=== PATIENT | female | born 1980 | race Caucasian/White ===

== ENCOUNTER 2018-03-21 10:01 | Outpatient (CLI) | payer BC ==
[2018-03-21 10:58] LABS: Hemoglobin 11.6 g/dL (12.0-16.0); Mean Corpuscular HGB CONC 32.2 g/dL (32.0-36.0); Mean Corpuscular Hemoglobin 25.8 pg (27.0-31.0); Mean Platelet Volume 7.8 fL (7.4-10.4); Platelet Count 281 thou/uL (130-400); RBC Distribution Width 14.9 % (11.5-14.5); White Blood Cell (WBC) Count 6.8 thou/uL (4.8-10.8)
[2018-03-21 11:03] LABS: BHCG - Serum Negative (NEGATIVE); Pregs Control Background? CLEAR/WHITE (CLR/WHITE); Pregs Control Bar Appear? YES (CONTROL BAR)
[2018-03-21 11:20] LABS: ALT (SGPT) 22 U/L (8-55); AST (SGOT) 18 U/L (5-34); Albumin 4.7 g/dL (3.5-5.0); Alkaline Phosphatase 66 U/L (40-150); Anion Gap 13 mmol/L (10-20); BUN (Urea Nitrogen) 9 mg/dL (7.0-18.7); Bilirubin, Total 1.3 mg/dL (0.2-1.2); Calc. Creatinine Clearance 0 mL/min (70-130); Calcium 9.8 mg/dL (7.8-10.44); Carbon Dioxide 25 mmol/L (22-29); Chloride 103 mmol/L (98-107); Estimated GFR-MDRD 75; Globulin 3.5 g/dL (2.4-3.5); Glucose 98 mg/dL (70-105); Potassium 4.2 mmol/L (3.5-5.1); Protein, Total 8.2 g/dL (6.0-8.3); Sodium 137 mmol/L (136-145)
== END 2018-03-21 10:02 | disposition home or self-care (01) ==
LOC: LABBT 10:01
PROVIDERS: ATTEND Obstetrics & Gynecology
DX: Z01.812 Encounter for preprocedural laboratory examination (principal); N39.3 Stress incontinence (female) (male); N93.9 Abnormal uterine and vaginal bleeding, unspecified
CPT/HCPCS: 80053; 84703; 85027; 86850; 86900; 86901

== ENCOUNTER 2018-03-21 10:15 | Inpatient (IN) | payer BC ==
[2018-03-21 10:36] VITALS: BMI 29.8
[2018-03-24] MEDS ORDERED: Famotidine/PF 20 mg/2ml Vial ONE (08:46)
[2018-03-24] MEDS ORDERED: Gabapentin 300 MG CAP ONE (08:46)
[2018-03-24] MEDS ORDERED: CEFAZOLIN/Water 2 GM/20 ML SYRINGE ONE (08:47)
[2018-03-24] MEDS ORDERED: Lidocaine 1% w/Epinephrine 1:100K 30 ML VIAL ONE (10:42)
[2018-03-24] MEDS ORDERED: Bupivacaine HCl 0.5%/Epinephrine 1:200,000/PF 30 ml Vial ONE (10:42)
[2018-03-24] MEDS ORDERED: Midazolam HCl 2 mg/2 ml Vial ONE ×2 (10:48→10:52)
[2018-03-24] MEDS ORDERED: Fentanyl 100 MCG/2 ML VIAL ONE (10:52)
[2018-03-24] MEDS ORDERED: HYDROmorphone 0.5 MG/0.5 ML SYRINGE ONE (10:52)
[2018-03-24] MEDS ORDERED: Promethazine HCl 25 MG/ML VIAL ONE (10:52)
[2018-03-24] MEDS ORDERED: Ondansetron HCl/PF 4 MG/2 ML Vial ONE (13:27)
[2018-03-24] MEDS ORDERED: Ketorolac Tromethamine 30 MG/ML VIAL ONE (13:27)
[2018-03-24] MEDS ORDERED: PROPOFOL 200 MG/20 ML VIAL ONE (13:27)
[2018-03-24] MEDS ORDERED: Lidocaine 1% PF 5 ML VIAL ONE (13:27)
[2018-03-24] MEDS ORDERED: Dexamethasone 20 MG/5 ML VIAL ONE (13:27)
[2018-03-24] MEDS ORDERED: Metoclopramide HCl 10 MG/2 ML VIAL ONE (13:27)
[2018-03-24] MEDS ORDERED: Glycopyrrolate 0.2 MG/ML 5 ML SYRINGE ONE (13:27)
[2018-03-24] MEDS ORDERED: diphenhydrAMINE 25 MG CAP PO PRN (14:28)
[2018-03-24] MEDS ORDERED: Acetaminophen 325 MG TAB PO PRN (14:28)
[2018-03-24] MEDS ORDERED: Promethazine HCl 25 MG/ML VIAL IM PRN (14:28)
[2018-03-24] MEDS ORDERED: Ondansetron HCl/PF 4 MG/2 ML Vial IVP PRN (14:28)
[2018-03-24] MEDS ORDERED: Simethicone Chewable 80 MG TAB PO PRN (14:28)
[2018-03-24] MEDS ORDERED: Bisacodyl 10 MG SUPP PR PRN (14:28)
[2018-03-24] MEDS ORDERED: Morphine 4 MG/ML VIAL ONE (15:22)
[2018-03-24] MEDS: Lactated Ringer's 1,000 ML IV SCH ×2 (16:34→20:37)
[2018-03-24] MEDS: HYDROcodone/Acetaminophen 10/325 mg Tablet PO PRN ×2 (16:43→20:29)
[2018-03-24] MEDS: Ibuprofen 800 MG TAB PO SCH (22:04)
[2018-03-25] MEDS: HYDROcodone/Acetaminophen 10/325 mg Tablet PO PRN ×3 (00:47→09:16)
[2018-03-25] MEDS: Ibuprofen 800 MG TAB PO SCH ×2 (05:09→13:00)
[2018-03-25 05:22] LABS: #Lymphocytes 2.2 thou/uL (1.20-3.40); #Monocytes 1.5 thou/uL (0.11-0.59); #Neutrophils 12.5 thou/uL (1.40-6.50); %Basophils 0.2 % (0.0-1.0); %Eosinophils 0.1 % (0.0-10.0); %Lymphocytes 13.5 % (21.0-51.0); %Neutrophils 77.2 % (42.0-75.0); Mean Corpuscular HGB CONC 31.5 g/dL (32.0-36.0); Mean Corpuscular Hemoglobin 25.8 pg (27.0-31.0); Mean Corpuscular Volume 81.8 fl (81.0-99.0); Mean Platelet Volume 7.8 fL (7.4-10.4); Platelet Count 245 thou/uL (130-400); RBC Distribution Width 14.7 % (11.5-14.5); Red Blood Cell (RBC) Count 3.51 mill/uL (4.20-5.40); White Blood Cell (WBC) Count 16.2 thou/uL (4.8-10.8)
[2018-03-25 05:29] LABS: Anion Gap 6 mmol/L (10-20); BUN (Urea Nitrogen) 5 mg/dL (7.0-18.7); Calc. Creatinine Clearance 145 mL/min (70-130); Calcium 8.5 mg/dL (7.8-10.44); Carbon Dioxide 28 mmol/L (22-29); Chloride 107 mmol/L (98-107); Estimated GFR-MDRD Greater than 90; Glucose 114 mg/dL (70-105); Potassium 3.9 mmol/L (3.5-5.1); Sodium 137 mmol/L (136-145)
[2018-03-25] MEDS: Lactated Ringer's 1,000 ML IV SCH (07:30)
[2018-03-25 08:46] VITALS: BP 135/78; TEMP 98.1
--- NOTE | 2018-03-25 09:40 | PRG ---
DATE OF SERVICE: 03/25/2018 HISTORY OF PRESENT ILLNESS: This is postoperative day #1, status post a total vaginal hysterectomy with a bilateral salpingectomy and a mid urethral sling using Advantage Fit and cystoscopy. SUBJECTIVE: The patient reports minimal pain and minimal vaginal bleeding. She is tolerating an oral diet and her pain is controlled with oral medications. Her vaginal pack and Nava were recently removed this morning. She has not yet been able to void since removal of her Nava. The patient reports minimal flatus currently. OBJECTIVE: VITAL SIGNS: Blood pressure is 135/78, temperature is 98.1, pulse is 84, respiratory rate is 20, oxygen saturation is 99% on room air. CARDIOVASCULAR: Regular rate. RESPIRATORY: Unlabored breathing. ABDOMEN: Soft, mild distention, positive bowel sounds in all 4 quadrants. EXTREMITIES: Negative Homans' and no edema. LABORATORY DATA: Hemoglobin 9, hematocrit 28.7, platelet count 245, white blood cells 16.2, creatinine is 0.69. ASSESSMENT: 1. This is postoperative day #1, status post a total vaginal hysterectomy with a bilateral salpingectomy and a mid urethral sling using Advantage Fit and cystoscopy. 2. Anemia, expected post op. PLAN: Continue postoperative care with p.r.n. pain meds and ambulation. Perform a voiding trial this morning with a bladder scan prior and after voiding. We will plan to discharge home later today after her voiding trial is complete. ZANE
[2018-03-25] MEDS ORDERED: HYDROcodone/Acetaminophen 5/325 mg Tablet PO SCH (12:00)
--- NOTE | 2018-03-25 12:37 | OP ---
PREOPERATIVE DIAGNOSES: 1. Abnormal uterine bleeding. 2. Stress urinary incontinence. POSTOPERATIVE DIAGNOSES: 1. Abnormal uterine bleeding. 2. Stress urinary incontinence. PROCEDURES: 1. Total vaginal hysterectomy. 2. Bilateral salpingectomy. 3. Transvaginal tape retropubic mid-urethral sling using Advantage Fit. 4. Cystoscopy. SURGEON: Ani Carrera D.O. CONTENT ANALYST: Tiffany Mack M.D. COMPLICATIONS: None. ESTIMATED BLOOD LOSS: 100 mL. URINE OUTPUT: 800 mL. FINDINGS: Normal appearing external genitalia, normal vaginal and cervical epithelium, 8-9 cm uterus with normal appearing bilateral fallopian tubes and ovaries with evidence of prior tubal ligation, normal appearing bladder mucosa with no signs of bladder perforation and bilateral ureteral efflux seen. INDICATIONS FOR THE PROCEDURE: Ms. Janine Schulte is a 38-year-old who presented to clinic with a history of abnormal uterine bleeding. The patient had undergone medical therapy using oral contraceptives and still continued to have heavy menstrual cycle. The patient was counseled on all treatment options, decided on definitive surgical therapy based on the examination she is a candidate for a vaginal hysterectomy and was counseled as such. The patient also complained of daily leaking of urine when she cough and sneeze. On examination, she did have a urethral hypermobility. She was counseled on treatment options and desired to pursue a mid-urethral sling for stress urinary incontinence. PROCEDURE IN DETAIL: The patient was brought to the operating room. She was placed under general anesthesia. The patient was initially placed in high lithotomy position using candy cane stirrups. She was prepped and draped in a sterile fashion. An official timeout was performed. Ancef was given for surgical prophylaxis. A weighted speculum was placed in the posterior aspect of vagina and then anterior aspect of the vagina was retracted using a [place]. The anterior and posterior aspect of the cervix was grasped with Romero clamps. The cervical vaginal junction was sequentially injected using lidocaine with epinephrine in a circumferential fashion to allow for hydrodissection. This juncture was incised using the scalpel in a circumferential fashion. The vaginal epithelium and fibers of the cervical vaginal junctions were dissected using blunt dissection with a moistened Ray-Esther. Attention was turned to the posterior aspect where the posterior peritoneum was identified and incised using Preciado scissors. Incision was extended and a long weighted speculum was placed into the posterior cul-de-sac. The attention was turned to the anterior aspect. Meticulous dissection was performed; however, the anterior peritoneum was not able to be identified immediately. Therefore,the uterosacral ligaments were clamped, transected and suture ligated bilaterally. These were tagged using hemostats. Attention was turned back to the anterior portion again. Again, the dissection was performed; however, the peritoneum was not able to be incised at this point. Additional clamp with a curved Smita transection and suture ligation was performed of the cardinal ligament allowing further descent of the uterus. At this time, the anterior vaginal epithelium was elevated further using an Allis clamp, tented upward and the peritoneum was then able to be identified after further meticulous dissection. Peritoneum was then incised and then this incision was extended and the Baljit retractor was placed within the peritoneal cavity between the uterus and bladder. Several advancements were made cephalad along the uterus where the uterine vessels were then clamped using Smita clamps, transected, and suture ligated creating hemostasis. This was done bilaterally. This was done in a sequential fashion until the uterus was able to be everted. At this time, the posterior aspect of the uterus was grasped using Romero clamps and the uterus was everted. A curved Smita clamp was then placed across the fallopian tube and the uterine ovarian on the right aspect. The tissue was then transected and the same was performed on the left aspect. During this process, the fallopian tube was incorporated into this. Therefore, this was additionally clamped and then removed as a separate specimen. The triple pedicle was then suture ligated using both the free tie on a pass and then a Smita stitch on the right side. The same was done on the left aspect. The suture was also tagged. The pelvis was then irrigated and cleared of all clot and debris. The removal of distal potion of the fallopian tubes was performed bilaterally and pedical suture ligated and hemostatic. There was an area along the right side of the vaginal cuff that required a [id number] stitch for improved hemostasis. The pedicle sites were evaluated and hemostatic. The posterior aspect of the cuff was then run in a running locking fashion incorporating the peritoneum into the cuff. The anterior aspect of the cuff was grasped using Allis clamp and the cuff was then closed with a running vertical fashion using 0 Vicryl and incorporating the uterosacral ligament. At this time, the attention was turned to performing the mid-ureteral sling. The patient was transitioned to [facility] in a low lithotomy position as this was necessary for the sling. The patient was then reprepped and redraped. The Nava catheter was already in place. The vaginal epithelium was grasped 1 cm distal from the urethral meatus with Allis clamps and elevated. This was injected using lidocaine with epinephrine. A superficial incision was made through the vaginal epithelium and Metzenbaum scissors were used to dissect tunnels towards the pubic bone. This was done bilaterally. A guide was placed from the Nava catheter. The sites for the exit where the marked above the pubic bone approximately 2 cm lateral to the midline. A hydrodissection was performed by injecting 30 mL of saline directly behind the pubic bone bilaterally. The transvaginal tape was then inserted on the patient's right aspect and then directly guided behind the pubic bone and exited at the marked spot. The same was performed on the left aspect. The Nava catheter was then removed. Cystoscopy was performed noting a normal appearing bladder mucosa. No evidence of bladder perforation and bilateral ureteral efflux. The cystoscope was removed and the Nava catheter was replaced. The sling was pulled up and appropriately secured, protecting it from being too taut with Mayos and ends of the sling were cut. The vaginal epithelium was closed in a running fashion and the vaginal pack was placed. The patient tolerated the procedure well. There were no complications. All counts were correct x2. Dermabond was placed of exit sites. The patient was extubated and transferred to recovery room. ZANE
--- NOTE | 2018-03-26 10:53 | DIS ---
DATE OF ADMISSION: 03/24/2018 DATE OF DISCHARGE: 03/25/2018 ADMISSION PHYSICIAN: Ani Carrera D.O. DISCHARGE PHYSICIAN: Ani Carrera D.O. ADMISSION DIAGNOSES: 1. Abnormal uterine bleeding. 2. Stress urinary incontinence. DISCHARGE DIAGNOSES: 1. Status post total vaginal hysterectomy with a bilateral salpingectomy and retropubic mid urethral sling using Advantage Fit. 2. Transient urinary retention after sling placement. BRIEF HOSPITAL COURSE: Ms. Janine Schulte is a 38-year-old female who underwent a total vaginal hysterectomy with bilateral salpingectomy and a retropubic mid urethral sling using Advantage Fit for complaints of abnormal uterine bleeding and stress urinary incontinence. The patient's postoperative course was complicated by transient urinary retention with failed voiding trial x2. Otherwise, her postoperative course was uncomplicated. An indwelling Nava catheter was placed for the transient urinary retention. She otherwise is meeting all requirements for discharge. She is tolerating oral intake, passing flatus, ambulating and pain is controlled SUBJECTIVE: Please see progress note from 03/25/2018. FOLLOWUP: The patient will be seen on 03/28/2018 for a repeat voiding trial. MEDICATIONS: 1. [place] 5/325 one tablet q.6 hours p.r.n. pain. 2. Motrin 800 mg 1 tablet q.8 hours p.r.n. pain. 3. Macrobid 100 mg once daily for prophylaxis. 4. Pyridium p.r.n. 5. Oxybutynin 5 mg once a day. DRAINS: Indwelling Nava catheter with a leg bag. ACTIVITY: Reviewed importance of pelvic rest, no heavy lifting, pulling or pushing x6 weeks. MTDD
--- NOTE | 2018-03-26 15:13 | PQF ---
JAY JAYLAURA TRAORE CANDICE [id number] [address] [place] [address] [id number] CLINICAL DOCUMENTATION CLARIFICATION FORM: POST DISCHARGE Please exercise your independent, professional judgment in responding to the clarification form. Clinical indicators are provided on the bottom of this form for your review. Thank you. Please check appropriate box(s): [ ] Acute blood loss anemia [ ] Post-op anemia related to acute blood loss [ ] Anemia: [ ] Aplastic [ ] Nutritional [ ] Drug induced (specify) ___ [ ] Hemolytic [ ] Hereditary [ ] Acquired [ ] Autoimmune [ ] Non-autoimmune [ ] Enzyme disorder [ X ] Chronic Anemia: [ X ] Blood loss [ ] Hemolytic [ ] Simple [ ] Due to Vitamin B12 Deficiency [ ] Other [ ] Anemia of Chronic Disease (please specify) [ ] Anemia due to Neoplasm: [ ] Primary [ ] Secondary [ ] Anemia due to (please choose): [ ] Due to Chemotherapy [ ] Due to Radiotherapy [ ] Due to Immunotherapy [ ] Other diagnosis [ ] Unable to determine In addition, please specify: Present on Admission (POA): [ X ] Yes [ ] No [ ] Unable to determine For continuity of documentation, please document condition throughout progress notes and discharge summary. Thank You. CLINICAL INDICATORS - SIGNS / SYMPTOMS / LABS Anemia documented on the op note 03/24/2018, abnormal uterine bleeding RBC 03/25/18 - 3.51 HGB 03/25/18 - 9.0 HCT 03/25/18 - 28.7 RISK FACTORS History of Abnormal uterine bleeding, s/p total vaginal hysterectomy with bilateral salpingesctomy and retropubic midurethral sling using Advantage Fit - Op Note 03/24/18 TREATMENTS: total vaginal hysterectomy - op note 03/24/18 (This form is maintained as a part of the permanent medical record) 2014 [employer] All Rights Reserved Syl Eaton, CCS, [employer] OPERATOR, CASC [email or web address] ZANE
== END 2018-03-25 14:13 | disposition home or self-care (01) | DRG 743 ==
LOC: SURG A 03-24 08:04 → 3SE 03-24 15:53
PROVIDERS: ADMIT Obstetrics & Gynecology; ATTEND Obstetrics & Gynecology
PROC: 0UT97ZZ Resection of Uterus, Via Natural or Artificial Opening (ICD-10-PCS; principal; 2018-03-24)
PROC: 0UT77ZZ Resection of Bilateral Fallopian Tubes, Via Natural or Artificial Opening (ICD-10-PCS; 2018-03-24)
PROC: 0TSD0ZZ Reposition Urethra, Open Approach (ICD-10-PCS; 2018-03-24)
PROC: 0TJB8ZZ Inspection of Bladder, Via Natural or Artificial Opening Endoscopic (ICD-10-PCS; 2018-03-24)
DX: N93.8 Other specified abnormal uterine and vaginal bleeding (principal); N39.3 Stress incontinence (female) (male); D50.0 Iron deficiency anemia secondary to blood loss (chronic); R33.9 Retention of urine, unspecified; F41.9 Anxiety disorder, unspecified; F32.9 Major depressive disorder, single episode, unspecified; Z88.5 Allergy status to narcotic agent; Z90.49 Acquired absence of other specified parts of digestive tract
CPT/HCPCS: 36415; 80048; 85025; 88307; C1781; J0131; J0670; J1100; J1170; J1885; J2001; J2250; J2270; J2405; J2550; J2704; J2765; J3010; S0028

== ENCOUNTER 2019-11-25 08:08 | Outpatient (CLI) | payer BC ==
--- NOTE | 2019-11-25 09:28 | ULT ---
LIMITED LEFT BREAST ULTRASOUND: Date: 11/25/2019 PROVIDED CLINICAL HISTORY: Left breast mass. FINDINGS: Limited sonographic interrogation was performed of the left breast in the region of palpable and mamm ographic concern. There is a circumscribed hypoechoic bilobed mass at the 5 o'clock position of the l eft breast in this region. This measures at least 2.4 cm in greatest dimension. There is no evidence for shadowing. Other than the macrolobulation, the margins of this mass appear smooth. IMPRESSION: BIRADS Category 4 - Suspicious abnormality. Ultrasound-guided biopsy is recommended. Results and recommendations discussed with the patient, who voiced understanding. POS: OFF
--- NOTE | 2019-11-25 10:14 | MMO ---
Bilateral MAMMO Bilat Diag DDI+DOROTHY. CLINICAL HISTORY: Patient is 39 years old and is seen for diagnostic exam. VIEWS: The views performed were: . FILMS COMPARED: The present examination has been compared to a prior imaging study performed at [facility] on 09/18/2016. This study has been interpreted with the assistance of computer-aided detection. MAMMOGRAM FINDINGS: The breasts are heterogeneously dense, which could obscure a lesion on mammography. There is an equal density, lobular mass measuring 27 millimeters with circumscribed margins seen in the outer region of the left breast. Ultrasound demonstrates a corresponding hypoechoic mass. In the right breast, there are no suspicious masses, calcifications or areas of architectural distortion. IMPRESSION: MASS IN THE LEFT BREAST IS SUSPICIOUS. AN ULTRASOUND-GUIDED BREAST BIOPSY IS RECOMMENDED. RESULTS AND RECOMMENDATIONS DISCUSSED WITH THE PATIENT AND QUESTIONS ANSWERED. THE RESULTS OF THIS EXAM WERE SENT TO THE PATIENT. ACR BI-RADS Category 4 - Suspicious abnormality - biopsy should be considered MAMMOGRAPHY NOTE: 1. A negative mammogram report should not delay a biopsy if a dominant of clinically suspicious mass is present. 2. Approximately 10% to 15% of breast cancers are not detected by mammography. 3. Adenosis and dense breasts may obscure an underlying neoplasm. Reported by: JOSE CHRISTINE MD Electonically Signed: [id number]
--- NOTE | 2019-11-25 10:53 | MMO ---
Left Breast MAMMO Unilat Diag DDI LT, US Breast Bx US Guided. CLINICAL HISTORY: Patient is 39 years old and is seen for diagnostic exam. VIEWS: The views performed were: . FILMS COMPARED: The present examination has been compared to prior imaging studies performed at [facility] on 09/18/2016 and 11/25/2019. This study has been interpreted with the assistance of computer-aided detection. MAMMOGRAM FINDINGS: The breast is heterogeneously dense, which could obscure a lesion on mammography. There is a new biopsy clip seen in the left breast. IMPRESSION: NEW BIOPSY CLIP IN THE LEFT BREAST IS CONFIRMED UTILIZING POST PROCEDURE MAMMOGRAM. THE RESULTS OF THIS EXAM WERE SENT TO THE PATIENT. MAMMOGRAPHY NOTE: 1. A negative mammogram report should not delay a biopsy if a dominant of clinically suspicious mass is present. 2. Approximately 10% to 15% of breast cancers are not detected by mammography. 3. Adenosis and dense breasts may obscure an underlying neoplasm. Reported by: JOSE CHRISTINE MD Electonically Signed: [id number]
--- NOTE | 2019-11-25 11:24 | ULT ---
LEFT AXILLARY ULTRASOUND: HISTORY: Bilobed solid mass in the left breast, undergoing ultrasound-guided biopsy. Evaluate for enlarged lef t axillary lymph nodes. TECHNIQUE: Targeted sonographic imaging of the left axilla was performed. Static images are reviewed. Real-time imaging was also performed in the presence of the radiologist. FINDINGS: Normal soft tissue echotexture. No lymphadenopathy. IMPRESSION: No evidence of left axillary lymphadenopathy. Transcribed Date/Time: 11/25/2019 11:25 AM
--- NOTE | 2019-11-25 11:26 | ULT ---
Exam: LEFT BREAST BIOPSY WITH ULTRASOUND GUIDANCE: HISTORY: Bilobed left breast mass. COMPARISON: 11/25/2019 10:32 AM. FINDINGS: Successful left breast biopsy with ultrasound guidance. A total of four 14-gauge core biopsy samples were obtained. Two samples were obtained of the larger component of the bilobed mass. Two samples were obtained of the smaller component of the bilobed mass. Post biopsy clip was placed TECHNIQUE: Consent obtained to perform an ultrasound-guided biopsy of a bilobed left breast mass. Left breast wa s prepped and draped fashion. 1% lidocaine, buffered with sodium bicarbonate was used for local anesthesia. Under ultrasound guidance, 14-gauge core biopsy needle was used to obtain four separate c ore biopsy samples. Samples were placed directly in formalin. With ultrasound guidance, a biopsy clip was placed into the larger of the two bilobed masses. There were no immediate postprocedure complications. Postbiopsy mammogram was performed IMPRESSION: Successful left breast biopsy with ultrasound guidance. Final pathologic diagnosis pending. Transcribed Date/Time: 11/25/2019 11:39 AM
== END 2019-11-25 08:09 | disposition home or self-care (01) ==
LOC: BICMAMMO 08:08
PROVIDERS: ATTEND Physician Assistant
DX: N63.20 Unspecified lump in the left breast, unspecified quadrant (principal); Z91.89 Other specified personal risk factors, not elsewhere classified
CPT/HCPCS: 19083; 76999; 77066; 88305; G0279